=== PATIENT | female | born 1980 | race Caucasian/White ===

== ENCOUNTER 2022-07-25 12:36 | Inpatient (IN) ==
[2022-07-25 13:29] LABS: Hematocrit (blood only) 37.2 % (34.1-44.9); Hemoglobin 12.4 g/dl (12.0-16.0); Mean Corpuscular Hemoglobin 27.6 pg (25.0-34.0); Mean Corpuscular Hgb Conc 33.3 g/dL (32.0-36.0); Mean Corpuscular Volume 82.9 fL (80.0-100.0); Mean Platelet Volume 9.9 fL (9.4-12.3); Platelet Count 241 K/uL (130-400); RDW Coefficient of Variation 13.1 % (11.5-14.5); RDW Standard Deviation 39.5 fL (36.4-46.3); Red Blood Count 4.49 M/uL (3.93-5.22); White Blood Count 9.59 K/ul (4.8-10.8)
[2022-07-25 13:35] LABS: Appearance Urine Clear (Clear); Bacteria Urine Automated Negative (Negative); Bilirubin Urine Negative (Negative); Blood Urine 3+ (Negative); Color Urine Yellow; Glucose Urine UA Negative (Negative); Ketones Urine Negative (Negative); Leukocyte Esterase Urine Negative (Negative); Nitrite Urine Negative (Negative); Protein Urine Negative (Negative); RBC Urine Automated >30 /hpf (0-4); Specific Gravity Urine 1.022 (1.000-1.030); Urobilinogen Urine Negative (Negative)
[2022-07-25 13:53] LABS: BUN Creatinine Ratio 15.5 (10-20); Calcium 9.3 mg/dl (8.5-10.1); Creatinine Clr Calc Pharmacy 104.2 ml/min; Est GFR (African American) 99.4 ml/min; Est GFR (Non-African American) 85.7 ml/min; Potassium 3.9 mmol/L (3.5-5.1)
[2022-07-25] MEDS ORDERED: ONDANSETRON INJ 2 MG/ML 2 ML VIAL IV STA (14:30)
[2022-07-25] MEDS: SODIUM CHLORIDE 0.9% 1000ML 1,000 ML IV SCH ×2 (14:30→22:42)
[2022-07-25] MEDS ORDERED: HYDROmorphone INJ 1 MG/ML SYRINGE IV STA (14:30)
[2022-07-25] MEDS ORDERED: FERRIC SUBSULFATE 8 GM VIAL ONE ×2 (15:01→15:02)
--- NOTE | 2022-07-25 15:24 | History & Physical Report ---
Date of Service July 25, 2022 Assessment & Plan (1) Vaginal bleeding: Plan: I discussed the plan of care with Dr. Posada, who agreed due to patient's poor tissue healing recommended Monsel's be applied to the area. Do not think it would be beneficial at this time to undergo another exam under anesthesia and suturing of the area. The mid urethral mesh that had been exposed was excised by Dr. Posada in the OR on 07/24/2022. Patient was offered Monsel's with packing which she was agreeable to. Offered patient to have done and to go home versus stay overnight and obtain repeat CBC in the morning. As her bleeding has almost stopped, but due to her pain and concern of bleeding further when she goes home she would like to stay overnight at this time. Regular diet, IV fluids as needed, ambulate as needed, I's and O's, tramadol every 6 as needed for pain Plan is to send her home with vaginal packing in place, and to remove in the office on Wednesday. However it falls out in the meantime and there is no bleeding noted we will keep the vaginal packing out. However if patient starts bleeding again consider repacking versus exam under anesthesia in the OR. Patient voiced her understanding and agreement with the plan. All questions answered in the room History of Present Illness Chief Complaint: Vaginal bleeding Primary Care Provider: Wesley Carroll MD Patient is a 42-year-old who presents to the emergency department today for ongoing vaginal bleeding. Notes she still continued to have vaginal bleeding after her exam under anesthesia and excision and repair of exposed mid urethral mesh performed by Dr. Posada yesterday. Patient is status post [facility] BS with mid urethral sling and cystoscopy on July 06. States after her procedure yesterday, she continued to have ongoing bleeding but after she inserted her estrogen cream at home this morning at approximately 9:30 AM she had heavier bleeding which she soaked through her pants and 3 pads. She changed her underwear and pants and had a large X-shaped clot and presented to the ED department due to this ongoing bleeding. Since she has been seen in the ED she has noticed the bleeding to be less, and she is concerned about having a pelvic exam due to her ongoing pain. Allergies Allergy/AdvReac Type Severity Reaction Status Date / Time morphine AdvReac Severe extreme Unverified 07/24/22 12:29 nausea/vomitting Sulfa (Sulfonamide AdvReac Intermediate GI SYMPTOMS Verified 07/24/22 12:29 Antibiotics) Home Medications Medication Instructions Recorded Confirmed Type Medical Marijuana 1 dose inhalation UD PRN 06/19/22 07/24/22 History anxiety/pain docusate sodium 50 mg capsule 50 mg PO BID 07/24/22 07/24/22 History (Stool Softener) duloxetine 60 mg capsule,delayed 60 mg PO DAILY 07/24/22 07/24/22 History release (Cymbalta) ibuprofen 600 mg tablet 600 mg PO Q6H #30 tabs 07/24/22 Rx Patient History Medical History ADHD Anxiety and depression Back problem lumbar compression fx "cracked" Chest discomfort [facility] cardio advised cardiac CT, score of 0, normal coronary arteries and no additional cardiac workup felt to be indicated History of anemia IRON INFUSIONS IN PAST History of COVID-19 07/2020>symptoms resolved Medical marijuana use Migraine Ocular migraine Post traumatic stress disorder Sinus bradycardia Stress incontinence Surgical History H/O cosmetic surgery tummy tuck with liposuction History of ankle surgery rt ankle (hardware intact) History of section x 1 History of cholecystectomy Family History Other No family history of adverse response to anesthesia No pertinent family history Social History Smoking Status: Never smoker Second Hand Exposure: No; Hx Alcohol Use: Yes (two nights ago) Alcohol type: other Hx Substance Use: Yes (medical marijuana) Last Used Substance: Hours (ago) Last Used Substance Other:: ONLY RX MARIJUANA Preferred Language: Sri Lankan Communication Ability: Effective Visual Impairment: No Limitations Hearing Ability: Normal 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 Beliefs That Will Affect Care: None Current Living Situation: Family current occupational status: employed Feels Safe at Home: Yes Assistive Devices: None OB History Review of Systems All systems reviewed & are unremarkable except as noted in HPI & below Physical Exam Constitutional: WD/WN, vitals as above Respiratory: normal respiratory effort, lungs clear to auscultation Cardiovascular: RRR, no murmur, no edema Gastrointestinal (Abdomen): normal bowel sounds, soft, nontender, no hepatosplenomegaly Genitourinary: Declined pelvic exam with speculum Normal external genetialia, approx 5 mls on pad noted suture past the interotis and monsels applied to area, and small amount of packing placed for pressure Results & Data ([facility]) Vital Signs (Past 12 Hours) Vital Signs Temp Pulse Pulse Resp BP BP Pulse Ox 07/25/22 13:04 71 20 154/86 H 97 07/25/22 13:04 96 07/25/22 12:49 37.2 C 72 18 151/85 H 97 O2 Del Method 07/25/22 13:04 Room Air 07/25/22 13:04 Room Air 07/25/22 12:49 Room Air Laboratory Results HH stable 12.4/37.2%
--- NOTE | 2022-07-25 15:25 | Emergency Department Note ---
History of Present Illness General Chief complaint: Bleeding Stated complaint: POST OP EXCESSIVE BLEEDING Time Seen by Provider: 07/25/22 14:22 History of Present Illness Provider complaint: Postoperative bleeding Onset (ago): day(s) 1 Maximum Pain Intensity: 8 42-year-old female presents emergency department for postoperative bleeding. P atient states she had a gynecological surgery done yesterday at this facility and since being discharged home has had increased bleeding and pain. Patient reports that she is bleeding through 1 pad every 30 minutes. Patient states that her bladder sling went through her vaginal wall and that was repaired by Dr. Posada. Home Medications Medication Instructions Recorded Confirmed Type Medical Marijuana 1 dose inhalation UD PRN 06/19/22 07/24/22 History anxiety/pain docusate sodium 50 mg capsule 50 mg PO BID 07/24/22 07/24/22 History (Stool Softener) duloxetine 60 mg capsule,delayed 60 mg PO DAILY 07/24/22 07/24/22 History release (Cymbalta) ibuprofen 600 mg tablet 600 mg PO Q6H #30 tabs 07/24/22 Rx Allergies Allergy/AdvReac Type Severity Reaction Status Date / Time morphine AdvReac Severe extreme Unverified 07/24/22 12:29 nausea/vomitting Sulfa (Sulfonamide AdvReac Intermediate GI SYMPTOMS Verified 07/24/22 12:29 Antibiotics) Past Med/Surg History Medical History ADHD Anxiety and depression Back problem lumbar compression fx "cracked" Chest discomfort [facility] cardio advised cardiac CT, score of 0, normal coronary arteries and no additional cardiac workup felt to be indicated History of anemia IRON INFUSIONS IN PAST History of COVID-19 07/2020>symptoms resolved Medical marijuana use Migraine Ocular migraine Post traumatic stress disorder Sinus bradycardia Stress incontinence Surgical History H/O cosmetic surgery tummy tuck with liposuction History of ankle surgery rt ankle (hardware intact) History of section x 1 History of cholecystectomy Family History Other No family history of adverse response to anesthesia No pertinent family history Social History Smoking Status: Never smoker Second Hand Exposure: No; Hx Alcohol Use: Yes (two nights ago) Alcohol type: other Hx Substance Use: Yes (medical marijuana) Last Used Substance: Hours (ago) Last Used Substance Other:: ONLY RX MARIJUANA Preferred Language: [place]serratian Communication Ability: Effective Visual Impairment: No Limitations Hearing Ability: Normal 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 Beliefs That Will Affect Care: None Current Living Situation: Family current occupational status: employed Feels Safe at Home: Yes Assistive Devices: None Review of Systems A total of 10 systems reviewed and were otherwise negative Physical Exam Vital Signs Vital Signs - 24 hr 07/25/22 12:49 07/25/22 13:04 07/25/22 13:04 Temperature 37.2 C Temperature Source Temporal Artery Scan Oral Pulse Rate 72 Pulse Rate [Right Finger] 71 Pulse Rhythm [Right Finger] Regular Pulse Strength [Right Finger] Normal Respiratory Rate 18 20 Respiratory Effort / Characteristics Non-Labored Splinting (from pain) Respiratory Depth Normal Normal Blood Pressure 151/85 H Blood Pressure [Right Arm] 154/86 H Blood Pressure Mean 107 Blood Pressure Mean [Right Arm] 108 Pulse Oximetry 97 96 97 Oxygen Delivery Method Room Air Room Air Room Air Sepsis Recent Fever Within 48 Hours No Sepsis New/Unexplained Change in Mental Status No Sepsis Action Taken by Nursing No Action Required Physical Exam GENERAL: She is oriented to person, place, and time. She appears well-developed and well-nourished. She does not appear distressed. HENT: Exam performed. -Head: Normocephalic and atraumatic. -Right Ear: External ear normal. No mastoid tenderness. -Left Ear: External ear normal. No mastoid tenderness. -Mouth/Throat: The oropharynx is clear and moist. No trismus in the jaw. No dental abscesses or uvula swelling. No oropharyngeal exudate or tonsillar abscesses. EYES: Conjunctivae and EOM are normal. Pupils are equal, round, and reactive to light. Right eye exhibits no discharge. Left eye exhibits no discharge. No scleral icterus. NECK: Normal range of motion. Neck supple. No JVD present. No spinous process tenderness present. No carotid bruit present. No rigidity. No tracheal deviation and normal range of motion present. No Brudzinski's sign and no Kernig's sign noted. CV: Normal rate, regular rhythm, normal heart sounds and intact distal pulses. There is no peripheral edema. Palpable radial pulses bue. PULM/CHEST: Effort normal and breath sounds normal. No respiratory distress. No stridor. She has no wheezes. She has no rales. -Chest Wall: She exhibits no tenderness. ABD: The abdomen is soft. Bowel sounds are normal. She has no distension. No mass is present. There is no tenderness. There is no rebound, no guarding, no Stephens's sign and no tenderness at McBurney's point. Rovsig negative MUSC/SKEL: Normal range of motion. There is no peripheral edema, tenderness or deformity. LYMPH: No cervical adenopathy. NEURO: She is alert and oriented to person, place, and time. She has normal strength. No cranial nerve deficit or sensory deficit. Coordination and gait normal. GCS eye subscore is 4. GCS verbal subscore is 5. GCS motor subscore is 6. Cerebellar tests wnl. SKIN: Skin is warm and dry. She is not diaphoretic. PSYCH: She has a normal mood and affect. Behavior is normal. Judgment and thought content normal. Course Course 1422: The patient was evaluated in room B2. A complete history and physical exam was performed Cardiac monitoring: An order was placed for continuous cardiac monitoring. The monitor shows a rate of 70 with sinus rhythm Patient was seen during a time of extreme volume and extreme acuity in the emergency department. Nursing triage protocols were initiated and labs were drawn by protocol in the triage area. Labs within normal limits. Patient states that yesterday they tried to do an internal exam in the office and she "almost ". Pelvic exam will be deferred at this time until we speak with [facility]. 1431: Spoke with Dr. Justin Mars [facility] on-call who states she will be down to evaluate the patient. 1502: Dr. Anderson at bedside and will do bedside procedure 1523: Patient admitted to Dr. Anderson service. Administered Medications Discontinued Medications Ferric Subsulfate (Ferric Subsulfate 8 Gm Vial) Confirm Administered Dose 8 gm .ROUTE .STK-MED ONE Stop: 07/25/22 15:02 Last Admin: 07/25/22 15:05 Dose: Not Given Documented By: ABIGAIL Hydromorphone HCl (Hydromorphone Inj 1 Mg/Ml Syringe) 0.5 mg IV NOW STA Stop: 07/25/22 14:31 Last Admin: 07/25/22 15:03 Dose: 0.5 mg Documented By: CHARLY Ondansetron HCl (Ondansetron Inj 2 Mg/Ml 2 Ml Vial) 4 mg IV NOW STA Stop: 07/25/22 14:31 Last Admin: 07/25/22 15:03 Dose: 4 mg Documented By: CHARLY Medical Decision Making Laboratory Data Result diagrams: 07/25/22 13:15 07/25/22 13:13 Lab Results 07/25/22 07/25/22 07/25/22 Range/Units 13:13 13:13 13:15 WBC (4.8-10.8) K/ul RBC (3.93-5.22) M/uL Hgb (12.0-16.0) g/dl Hct (34.1-44.9) % MCV (80.0-100.0) fL MCH (25.0-34.0) pg MCHC (32.0-36.0) g/dL RDW Std Deviation (36.4-46.3) fL RDW Coeff of Maren (11.5-14.5) % Plt Count (130-400) K/uL MPV (9.4-12.3) fL Sodium 136 (136-145) mmol/L Potassium 3.9 (3.5-5.1) mmol/L Chloride 104 (98-107) mmol/L Carbon Dioxide 24 (21-32) mmol/L Anion Gap 8 (3-11) BUN 13 (6-23) mg/dl Creatinine 0.84 (0.6-1.2) mg/dl Est Cr Clr Drug Dosing 104.2 ml/min Est GFR ( Amer) 99.4 ml/min Est GFR (Non-Af Amer) 85.7 ml/min BUN/Creatinine Ratio 15.5 (10-20) Glucose 77 (70-99(Fasting)) mg/dl Calcium 9.3 (8.5-10.1) mg/dl HCG, Quant mIU/ml Urine Color Yellow Urine Appearance Clear (Clear) Urine pH 5.0 (4.5-7.5) Ur Specific [place] 1.022 (1.000-1.030) Urine Protein Negative (Negative) Urine Glucose (UA) Negative (Negative) Urine Ketones Negative (Negative) Urine Blood 3+ H (Negative) Urine Nitrite Negative (Negative) Urine Bilirubin Negative (Negative) Urine Urobilinogen Negative (Negative) Ur Leukocyte Esterase Negative (Negative) Urine WBC (Auto) 1-5 (0-5) /hpf Urine RBC (Auto) >30 H (0-4) /hpf U Hyaline Cast (Auto) 1-5 (0-5) /lpf U Epithel Cells (Auto) 10-20 H (0-5) /lpf Urine Bacteria (Auto) Negative (Negative) SARS-CoV-2, RNA, NAAT (NEGATIVE) Blood Type O Positive Antibody Screen NEGATIVE 07/25/22 07/25/22 07/25/22 Range/Units 13:15 13:15 Unknown WBC 9.59 (4.8-10.8) K/ul RBC 4.49 (3.93-5.22) M/uL Hgb 12.4 (12.0-16.0) g/dl Hct 37.2 (34.1-44.9) % MCV 82.9 (80.0-100.0) fL MCH 27.6 (25.0-34.0) pg MCHC 33.3 (32.0-36.0) g/dL RDW Std Deviation 39.5 (36.4-46.3) fL RDW Coeff of Maren 13.1 (11.5-14.5) % Plt Count 241 (130-400) K/uL MPV 9.9 (9.4-12.3) fL Sodium (136-145) mmol/L Potassium (3.5-5.1) mmol/L Chloride (98-107) mmol/L Carbon Dioxide (21-32) mmol/L Anion Gap (3-11) BUN (6-23) mg/dl Creatinine (0.6-1.2) mg/dl Est Cr Clr Drug Dosing ml/min Est GFR ( Amer) ml/min Est GFR (Non-Af Amer) ml/min BUN/Creatinine Ratio (10-20) Glucose (70-99(Fasting)) mg/dl Calcium (8.5-10.1) mg/dl HCG, Quant < 1 mIU/ml Urine Color Urine Appearance (Clear) Urine pH (4.5-7.5) Ur Specific [place] (1.000-1.030) Urine Protein (Negative) Urine Glucose (UA) (Negative) Urine Ketones (Negative) Urine Blood (Negative) Urine Nitrite (Negative) Urine Bilirubin (Negative) Urine Urobilinogen (Negative) Ur Leukocyte Esterase (Negative) Urine WBC (Auto) (0-5) /hpf Urine RBC (Auto) (0-4) /hpf U Hyaline Cast (Auto) (0-5) /lpf U Epithel Cells (Auto) (0-5) /lpf Urine Bacteria (Auto) (Negative) SARS-CoV-2, RNA, NAAT NEGATIVE (NEGATIVE) Blood Type Antibody Screen MDM Narrative 1422: The patient was evaluated in room B2. A complete history and physical exam was performed Cardiac monitoring: An order was placed for continuous cardiac monitoring. The monitor shows a rate of 70 with sinus rhythm Patient was seen during a time of extreme volume and extreme acuity in the emergency department. Nursing triage protocols were initiated and labs were drawn by protocol in the triage area. Labs within normal limits. Patient states that yesterday they tried to do an internal exam in the office and she "almost ". Pelvic exam will be deferred at this time until we speak with [facility]. 1431: Spoke with Dr. Justin Mars [facility] on-call who states she will be down to evaluate the patient. 1502: Dr. Anderson at bedside and will do bedside procedure 1523: Patient admitted to Dr. Anderson service. Impression & Plan Post-op bleeding Discharge Plan Visit Data Chief Complaint: Bleeding Stated Complaint: POST OP EXCESSIVE BLEEDING ED Provider: Cale Talamantes Discharge Problem: Post-op bleeding Patient Disposition: Admitted As Inpatient Forms [facility] Prescriptions Prescriptions: No Action Stool Softener 50 mg Capsule 50 mg PO BID duloxetine [Cymbalta] 60 mg Capsule,Delayed Release(Dr/Ec) 60 mg PO DAILY ibuprofen 600 mg tablet 600 mg PO Q6H Qty: 30 0RF Medical Marijuana 1 dose inhalation UD PRN (Reason: anxiety/pain) Referrals Referrals: Wesley Carroll MD [Primary Care Provider] -
[2022-07-25] MEDS ORDERED: traZODone HCL 50 MG TAB PO SCH (21:00)
[2022-07-25] MEDS ORDERED: DOCUSATE SODIUM SYRUP 100 MG/10 ML UDC PO SCH (21:00)
[2022-07-25] MEDS ORDERED: IBUPROFEN 600 MG TAB PO ONE (21:05)
[2022-07-25] MEDS: traMADol HCL 50 MG TABLET PO PRN (21:07)
[2022-07-25] MEDS: IBUPROFEN 600 MG TAB PO SCH (21:07)
[2022-07-26] MEDS: traMADol HCL 50 MG TABLET PO PRN ×2 (01:47→08:53)
[2022-07-26 03:39] VITALS: O2SAT 98
[2022-07-26] MEDS: IBUPROFEN 600 MG TAB PO SCH (03:40)
[2022-07-26] MEDS: SODIUM CHLORIDE 0.9% 1000ML 1,000 ML IV SCH (06:38)
[2022-07-26 07:47] LABS: Basophils # (auto) 0.03 K/uL (0-0.2); Basophils % (auto) 0.5 %; Eosinophils # (auto) 0.35 K/uL (0-0.50); Hematocrit (blood only) 34.5 % (34.1-44.9); Hemoglobin 11.3 g/dl (12.0-16.0); Immature Granulocytes # (auto) 0.03 K/uL (0.00-0.02); Immature Granulocytes % (auto) 0.5 %; Lymphocytes # (auto) 2.16 K/uL (1.2-3.4); Lymphocytes % (auto) 36.9 %; Mean Corpuscular Hemoglobin 27.2 pg (25.0-34.0); Mean Corpuscular Hgb Conc 32.8 g/dL (32.0-36.0); Mean Corpuscular Volume 83.1 fL (80.0-100.0); Mean Platelet Volume 9.9 fL (9.4-12.3); Monocytes # (auto) 0.44 K/uL (0.24-0.82); Monocytes % (auto) 7.5 %; Neutrophils # (auto) 2.85 K/uL (1.4-6.5); Neutrophils % (auto) 48.6 %; Platelet Count 200 K/uL (130-400); RDW Coefficient of Variation 13.2 % (11.5-14.5); RDW Standard Deviation 39.8 fL (36.4-46.3); Red Blood Count 4.15 M/uL (3.93-5.22); White Blood Count 5.86 K/ul (4.8-10.8)
--- NOTE | 2022-07-26 07:56 | Gynecologic Progress Note ---
Date of Service July 26, 2022 Assessment & Plan (1) Vaginal bleeding: Plan: Bleeding has stabilized/discontinued. Plan to discharge home with vaginal packing and Monsel's. Will remove in office. Will also prescribe antibiotics. All questions answered. Admission and Anticipated Discharge Date Admission Date: July 25, 2022 Subjective Patient seen and examined this morning. Patient reports vaginal packing expelled with urination. Minimal brown discharge. No blood on pad. Reports vaginal swelling. Denies N/V, fevers, chills, SOB or CP. Denies urinary or bowel symptoms. Review of Systems Review of Systems: All systems reviewed & are unremarkable except as noted in HPI & below Physical Exam Constitutional: WD/WN, vitals as above Respiratory: normal respiratory effort, lungs clear to auscultation Cardiovascular: RRR, no murmur, no edema Genitourinary: Normal external genitalia. Edematous vaginal mucosa. Areas noted from previous Monsel insertion. Vaginal packing no longer in place. Results & Data ([facility]) Vital Signs (Past 12 Hours) Vital Signs Temp Pulse Pulse Resp BP Pulse Ox O2 Del Method 07/26/22 03:36 36.5 C 74 18 119/74 98 Room Air 07/25/22 22:50 36.9 C 68 18 120/68 97 Room Air 07/25/22 22:16 53 L 14 120/65 94 Room Air
[2022-07-26] MEDS ORDERED: FERRIC SUBSULFATE 8 GM VIAL TOP SCH (08:15)
--- NOTE | 2022-07-26 08:30 | Discharge Summary ---
Date of Service July 26, 2022 Admission HPI Per Admitting Provider Patient is a 42-year-old who presents to the emergency department today for ongoing vaginal bleeding. Notes she still continued to have vaginal bleeding after her exam under anesthesia and excision and repair of exposed mid urethral mesh performed by Dr. Posada yesterday. Patient is status post [facility] BS with mid urethral sling and cystoscopy on July 06. States after her procedure yesterday, she continued to have ongoing bleeding but after she inserted her estrogen cream at home this morning at approximately 9:30 AM she had heavier bleeding which she soaked through her pants and 3 pads. She changed her underwear and pants and had a large X-shaped clot and presented to the ED department due to this ongoing bleeding. Since she has been seen in the ED she has noticed the bleeding to be less, and she is concerned about having a pelvic exam due to her ongoing pain. Admission Exam (Per Admitting) Constitutional WD/WN, vitals as above Respiratory normal respiratory effort, lungs clear to auscultation Cardiovascular RRR, no murmur, no edema Discharge Data Consultations 07/25/22 15:12 ED Decision to Admit Stat Hospital Course (1) Vaginal bleeding: Bleeding has stabilized/discontinued. Plan to discharge home with vaginal packing and Monsel's. Will remove in office. Will also prescribe antibiotics. All questions answered.
[2022-07-26 08:34] VITALS: PULSE 58; TEMP 98.2
[2022-07-26] MEDS ORDERED: DOCUSATE SODIUM 100 MG CAP PO SCH (09:00)
[2022-07-26] MEDS ORDERED: DULoxetine HCL 60 MG CAP PO SCH (09:00)
[2022-07-26 10:29] VITALS: BP 119/74
== END 2022-07-26 10:10 | disposition home or self-care (01) | DRG 761 ==
LOC: ED 12:36 → EDINP 15:13 → 4E1 07-26 00:51